=== PATIENT | male | born 1965 | race Caucasian/White ===

== ENCOUNTER 2021-10-23 11:27 | Emergency (ER) | payer SELFPAY ==
[~2021-10-23] VITALS: Ht 180.3 cm; Wt 82.6 kg
--- NOTE | 2021-10-23 11:35 | NUR ---
TO ER BED 9. BIB [facility],GLF AT A STORE,FOREHEAD LACERATION/BRUISE, NO LOC.
--- NOTE | 2021-10-23 12:24 | NUR ---
PT TAKEN TO CT VIA [facility]
[2021-10-23 13:04] VITALS: BP 134/82
--- NOTE | 2021-10-23 13:30 | NUR ---
Patient discharged to home in stable condition. Written and verbal after care instructions given. Patient verbalizes understanding of instruction.
== END 2021-10-23 19:00 | disposition home or self-care (01) ==
LOC: ER 11:35
DX: S01.81XA Laceration without foreign body of other part of head, initial encounter (principal); Z86.69 Personal history of other diseases of the nervous system and sense organs; W18.30XA Fall on same level, unspecified, initial encounter; Y93.89 Activity, other specified; Y92.89 Other specified places as the place of occurrence of the external cause; Y99.8 Other external cause status
CPT/HCPCS: 70450-TC; 72125-TC